=== PATIENT | male | born 1975 | race Caucasian/White ===

== ENCOUNTER 2024-12-28 13:42 | Emergency (ER) | payer MEDICAID, SELFPAY ==
[2024-12-28 13:58] VITALS: BP 158/125; BP 167/117; PULSE 89; RESP 19; TEMP 36.6; O2SAT 98; BMI 29.5
[2024-12-28] MEDS: KETOROLAC INJ 60 MG/2 ML VIAL IM (14:37)
[2024-12-28] MEDS: HYDROcodone/APAP 5/325 TABLET 1 TAB PO (14:38)
[2024-12-28] MEDS: ONDANSETRON ODT 4 MG TABRAP PO (14:38)
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
[2024-12-28 15:17] VITALS: BP 134/88
== END 2024-12-28 15:17 | disposition home or self-care (01) ==
LOC: SERX 15:17
PROVIDERS: Emergency Provider Emergency Medicine
DX: M54.2 Cervicalgia (principal); M79.603 Pain in arm, unspecified
CPT/HCPCS: 96372; 99282; J1885; Q0162; A9270